=== PATIENT | male | born 1995 | race Caucasian/White ===

== ENCOUNTER 2020-10-31 23:23 | Emergency (ER) | payer BC, MEDICAID ==
[~2020-10-31] VITALS: Ht 188 cm; Wt 79.5 kg
--- NOTE | 2020-11-01 02:59 | NUR ---
pt to room, assumed care. hand soaking in fluids to clean.
[2020-11-01 04:58] VITALS: BP 115/75
== END 2020-11-01 04:59 | disposition home or self-care (01) ==
LOC: ER 23:23
DX: S61.211A Laceration without foreign body of left index finger without damage to nail, initial encounter (principal); W45.8XXA Other foreign body or object entering through skin, initial encounter; Y93.89 Activity, other specified; Y92.89 Other specified places as the place of occurrence of the external cause; Y99.8 Other external cause status
CPT/HCPCS: 12001; 99282